=== PATIENT | male | born 1995 | race Caucasian/White ===

== ENCOUNTER 2017-04-13 00:43 | Emergency (ER) | payer MEDICAID, OTHER ==
[~2017-04-13] VITALS: Ht 185.4 cm; Wt 80.0 kg
[~2017-04-13 00:43] MED LIST: ARIP20 PO; LISD50 PO; SERO100T PO
[2017-04-13 00:45] VITALS: BP 128/77; PULSE 80; RESP 16; TEMP 98.1; O2SAT 100
[2017-04-13] MEDS ORDERED: DICL50TA3 PO (02:07)
--- NOTE | 2017-04-13 02:11 | PD ---
HPI Chief Complaint: Injury Time Seen by Provider: 02:07 Travel History International Travel<30 days: No Contact w/Intl Traveler<30days: No Traveled to known affect area: No History of Present Illness HPI 21-year-old white male presents to emergency department by EMS for evaluation of left knee pain. He states that he had to walk from [place] and to [facility] today to get his Social Security card for work. He states that since he 's been walking his developed pain in his left knee and [place] region. He denies any direct trauma. No numbness, tingling or focal weakness. Pain is mild. Worse with walking. Some relief with elevation. PFSH Past Medical History ADD: Yes ADHD: Yes Bipolar Disorder: Yes Weight (Kg): early Anxiety: Yes Depression: Yes Cancer: No Cardiovascular Problems: No Diabetes: No Diminished Hearing: No Headaches: No Heparin Induced Thrombocytopen: No Hypertension: No Implanted Vascular Access Dvce: No Psychiatric: Yes Immunizations Current: Yes Migraines: No Schizophrenia: No Seizures: No Thyroid Disease: No Ulcer: No Tetanus Vaccination: Unknown Influenza Vaccination: Yes Past Surgical History Surgical History: No Previous Surgery Insulin Pump: No Pacemaker: No Other Surgery: No Social History Alcohol Use: Yes (occ) Tobacco Use: Yes Substance Use: Yes (weed) Allergies-Medications (Allergen,Severity, Reaction): Uncoded Allergies: GRAPE JUICE (Allergy, Unknown, 10/17/15) Reported Meds & Prescriptions Reported Meds & Active Scripts Active Diclofenac Sodium DR (Diclofenac Sodium) 50 Mg Tabdr 50 Mg PO TID Physical Exam Narrative GENERAL: This is a well-nourished, well-developed patient, in no apparent distress. SKIN: No rashes, ecchymoses or lesions. Warm and dry. HEAD: Atraumatic. Normocephalic. EYES: PERRL, EOMI, no discharge or injection. No scleral icterus. EARS: Clear NOSE: Nasal turbinates appear normal. THROAT: Mucosa pink and moist. Airway patent. NECK: Trachea midline. supple, moves head freely. LUNGS: Clear to auscultation. CV: Regular in rhythm. ABDOMEN: Soft nontender. EXT: No clubbing cyanosis or edema. Examination of left lower extremity reveals no obvious deformity. No edema, erythema or warmth. He has intact sensation with good distal pulses. He has full range of motion of the extremity without instability. Patient ambulates with only a minimally antalgic gait. Data Data Last Documented VS Vital Signs Date Time Temp Pulse Resp B/P Pulse Ox O2 Delivery O2 Flow Rate FiO2 04/13/17 00:45 98.1 80 16 128/77 100 Room Air Orders Naproxen (Naprosyn) (04/13/17 02:15) Ice/Cold Pack (04/13/17 02:05) Splint Or Brace Apply/Monitor (04/13/17 02:05) MDM Medical Decision Making Medical Screen Exam Complete: Yes Emergency Medical Condition: Yes Medical Record Reviewed: Yes Differential Diagnosis MDM: High Differential diagnoses: Fracture, sprain, strain, dislocation, contusion, neurovascular injury Narrative Course Patient is given Naprosyn 500 mg by mouth. Judah wrap. Patient is offered crutches which she has declined. This is left knee pain Diagnosis Primary Impression: left knee pain Patient Instructions: General Instructions Additional Instructions: Rest. Elevation. Ice packs for the next 3 days. Judah wrap. Limits weight-bearing as tolerated. Medications as directed Follow-up with an orthopedist or your doctor in one week. Return to the ER if any problems Med/Other Pt SpecificInfo: Prescription(s) given Scripts Diclofenac Sodium DR 50 Mg Tabdr50 Mg PO TID #21 TAB Prov:Micki Daniel MD 04/13/17 Disposition: 01 DISCHARGE HOME Condition: Stable Markell Wallace Apr 13, 2017 02:10
[2017-04-13] MEDS ORDERED: NAPROXEN 500 MG TAB PO ONE (02:15)
== END 2017-04-13 02:28 | disposition home or self-care (01) ==
LOC: NEPD 00:43
DX: M25.562 Pain in left knee (principal)
CPT/HCPCS: 99283; E0113